=== PATIENT | female | born 1945 | race Caucasian/White ===

== ENCOUNTER 2020-08-12 06:30 | Day surgery (SDC) | payer MEDICARE ==
[~2020-08-12] VITALS: Ht 160 cm; Wt 69.2 kg
[~2020-08-12 06:30] MED LIST: ASCO-90 PO; CHOL10003 PO; CYAN-27 PO; Fiber Well PO; LEVO75TA5 PO; MAGN400T36 PO; MULT-449 PO; SERT-331 PO; VIT1CAPS42 PO
[2020-08-12 07:18] VITALS: BP 144/81
[2020-08-12] MEDS ORDERED: LACTATED RINGERS 1,000 ML IV SCH (07:30)
[2020-08-12] MEDS ORDERED: CHLORHEXIDINE 15 ML UDC MM ONE (07:30)
[2020-08-12] MEDS ORDERED: FENTANYL PF 250 MCG/5ML ONE (07:48)
[2020-08-12] MEDS ORDERED: PROPOFOL 10 MG/ML, 20ML ONE (07:49)
[2020-08-12] MEDS ORDERED: ROCURONIUM 10MG/ML,5ML ONE (07:49)
[2020-08-12] MEDS ORDERED: ONDANSETRON 2MG/ML, 2ML ONE (07:49)
[2020-08-12] MEDS ORDERED: NEOSTIGMINE 1 MG/ML, 10ML ONE (07:49)
[2020-08-12] MEDS ORDERED: GLYCOPYRROLATE 0.2MG/1ML, 5ML ONE (07:49)
[2020-08-12] MEDS ORDERED: CEFAZOLIN 1,000 MG ONE (07:49)
[2020-08-12] MEDS ORDERED: SUGAMMADEX 200 MG/2 ML IVPush ONE (08:34)
[2020-08-12] MEDS ORDERED: DEXAMETHASONE 4 MG/ML, 1ML ONE (08:34)
[2020-08-12] MEDS ORDERED: PROMETHAZINE 25 MG/ML, 1ML IVPush PRN (09:00)
[2020-08-12] MEDS ORDERED: HYDROmorphone 1 MG/ML, 1ML INJ IVPush PRN (09:00)
[2020-08-12] MEDS ORDERED: HALOPERIDOL 5 MG/ML IV PRN (09:00)
[2020-08-12] MEDS ORDERED: ACETAMINOPHEN 325 MG TABLET PO PRN (09:00)
[2020-08-12] MEDS ORDERED: hydrALAzine 20 MG/ML, 1ML IV PRN (09:00)
[2020-08-12] MEDS ORDERED: OXYcodone 5 MG/5 ML ORAL.SOL UDC PO PRN (09:00)
[2020-08-12] MEDS ORDERED: LABETALOL 5MG/ML, 20ML IV PRN (09:00)
[2020-08-12] MEDS ORDERED: morphine SULFATE 10 MG/ML, 1ML IVPush PRN (09:00)
[2020-08-12] MEDS ORDERED: FENTANYL PF 100 MCG/2ML IV PRN (09:00)
[2020-08-12] MEDS ORDERED: MEPERIDINE/PF 25MG/0.5ML IVPush PRN (09:00)
== END 2020-08-12 10:40 | disposition home or self-care (01) ==
LOC: OUT 06:30
PROVIDERS: ATTEND Otolaryngology
DX: D10.4 Benign neoplasm of tonsil (principal); E03.9 Hypothyroidism, unspecified; Z20.822 Contact with and (suspected) exposure to COVID-19; Z79.890 Hormone replacement therapy; Z79.899 Other long term (current) drug therapy
CPT/HCPCS: 42808; 88305; 93005; J0690; J1100; J2405; J2704; J2710; J3010; J7120; U0003